=== PATIENT | female | born 1990 | race Caucasian/White ===

== ENCOUNTER 2019-07-12 20:14 | Emergency (ER) | payer MEDICAID ==
[~2019-07-12] VITALS: Ht 170.2 cm; Wt 104.3 kg
[2019-07-12 20:23] VITALS: Ht 170.2 cm; Wt 104.3 kg
[2019-07-12 23:17] VITALS: BP 132/70
== END 2019-07-12 23:17 | disposition home or self-care (01) ==
LOC: ED 20:14
DX: R10.30 Lower abdominal pain, unspecified (principal); G89.18 Other acute postprocedural pain; Z76.0 Encounter for issue of repeat prescription
CPT/HCPCS: J2270; Q0162